=== PATIENT | male | born 1965 | race Caucasian/White ===

== ENCOUNTER 2024-03-13 00:06 | Emergency (ER) | payer OTHER ==
[2024-03-13 00:11] VITALS: BP 122/80; PULSE 92; RESP 20; TEMP 98.2; BMI 35.6
[2024-03-13] MEDS ORDERED: KETOROLAC TROMETHAMINE 30 MG/1 ML VIAL ONE (00:32)
[2024-03-13] MEDS: KETOROLAC TROMETHAMINE 30 MG/1 ML VIAL IM ONE (01:15)
[2024-03-13] MEDS ORDERED: LIDOCAINE 4% PATCH TP ONE (03:53)
[2024-03-13] MEDS: LIDOCAINE 4% PATCH TP ONE (03:57)
[2024-03-13] MEDS: METHYL SALICYLATE/MENTHOL OINT 30 GM TUBE TP ONE (04:11)
[2024-03-13] MEDS ORDERED: LIDOCAINE PATCH REMOVAL MC ONE (16:00)
== END 2024-03-13 04:14 | disposition home or self-care (01) ==
LOC: JER 00:06
PROC: 3E0133Z Introduction of Anti-inflammatory into Subcutaneous Tissue, Percutaneous Approach (ICD-10-PCS; principal; 2024-03-13)
DX: R07.81 Pleurodynia (principal); M25.511 Pain in right shoulder; M54.50 Low back pain, unspecified; M25.562 Pain in left knee; W10.8XXA Fall (on) (from) other stairs and steps, initial encounter
CPT/HCPCS: 71045-TC-FY; 71101-TC-RT-FY; 72170-TC-FY; 73030-TC-RT-FY; 73060-TC-RT-FY; 73562-TC-LT-FY; 73590-TC-LT-FY; 99284-25